=== PATIENT | female | born 1965 | race Two or more races ===

== ENCOUNTER 2020-07-14 20:42 | Emergency (ER) | payer SELFPAY ==
[~2020-07-14] VITALS: Ht 152.4 cm; Wt 122.0 kg
[2020-07-14 21:30] VITALS: BP 180/90
--- NOTE | 2020-07-14 21:47 | NUR ---
ED Nurse Note: Pt walked in from home. Ambulatory , with a katherine step pattern. Vitals are stable on RA with notable Hypertension. Per pt she slipped and fell landing other right leg to right shoulder. She is co of 02/23 pain from right knee to right shoulder. Addendum: 07/14/20 at 2236 by [email or web address] correction 12/24 pain
--- NOTE | 2020-07-14 22:17 | Diagnostic Imaging Report ---
EXAM: XR Right Knee, 3 Views CLINICAL HISTORY: PAIN TECHNIQUE: Three views of the right knee. COMPARISON: No previous study. FINDINGS: Bones/joints: Osteopenia. Moderate to severe osteoarthritic changes, most notably at the patellofemoral joint. No acute fracture or dislocation. Small right knee joint effusion. Soft tissues: Soft tissues are unremarkable. IMPRESSION: 1. Osteopenia. 2. Advanced osteoarthritic changes, most notably at the patellofemoral joint. 3. Joint effusion. 4. Magnetic resonance imaging of the right knee joint should be performed if there is continued concern.
--- NOTE | 2020-07-14 22:29 | Diagnostic Imaging Report ---
EXAM: XR Right Shoulder Complete, 2 or More Views CLINICAL HISTORY: PAIN TECHNIQUE: Two or more views of the right shoulder. COMPARISON: No previous studies. FINDINGS: Bones/joints: Osteopenia. There is fracture of the distal right are clavicle of indeterminate age, possibly chronic. Moderate hypertrophic changes right acromial clavicular joint. Mild osteoarthritic changes about the right shoulder joint. Regional ribs and the scapular unremarkable. No dislocation. Soft tissues: Unremarkable. IMPRESSION: 1. Fracture of the distal right clavicle of indeterminate age, possibly old. Clinical correlation is advised. 2. Osteopenia. 3. If there is concern for rotator cuff tendon abnormalities, magnetic resonance imaging should be performed.
--- NOTE | 2020-07-14 22:30 | Emergency Room Report ---
History of Present Illness General Chief Complaint: Multiple Trauma/Fall Source: Patient Present Illness HPI 54-year-old female, history of hypertension presents with mechanical fall hit her right knee prior to arrival, patient was amatory afterwards, she endorses achy pain aggravated luminally with rest severity is mild, intermittent patient denies hitting her head no LOC patient presents for evaluation Allergies: Coded Allergies: No Known Allergies (Unverified , 07/14/20) COVID-19 Screening Contact w/high risk pt: No Experienced COVID-19 symptoms?: No COVID-19 Testing performed M48 M60 [employer]WMAN: No Patient History Past Medical History: see triage record Last Menstrual Period: n/a Reviewed Nursing Documentation: PMH: Agreed; PSxH: Agreed Nursing Documentation-PMH Past Medical History: No History, Except For Hx Hypertension: Yes Hx Diabetes: Yes Review of Systems All Other Systems: negative except mentioned in HPI Physical Exam Vital Signs Date Time Temp Pulse Resp B/P (MAP) Pulse Ox O2 Delivery O2 Flow Rate FiO2 07/14/20 20:50 98.8 73 18 188/90 (122) 93 Room Air General Appearance: well appearing, no apparent distress Head: normocephalic, atraumatic ENT: hearing grossly normal, normal voice Neck: full range of motion, supple Respiratory: no respiratory distress, speaking full sentences Musculoskeletal: other - Right knee: Anterior posterior drawer negative, valgus varus negative. Right shoulder empty can test positive radial median ulnar nerve intact Neurologic: alert, normal gait Psychiatric: mood/affect normal Skin: no rash Medical Decision Making Diagnostic Impression: Primary Impression: Fall Qualified Codes: W19.XXXA - Unspecified fall, initial encounter Additional Impressions: Contusion of right knee Qualified Codes: S80.01XA - Contusion of right knee, initial encounter Rotator cuff injury Qualified Codes: S46.001A - Unspecified injury of muscle(s) and tendon(s) of the rotator cuff of right shoulder, initial encounter Clavicle fracture Qualified Codes: S42.034A - Nondisplaced fracture of lateral end of right clavicle, initial encounter for closed fracture ER Course 54-year-old female presents with mechanical fall, most likely with a knee contusion x-ray negative, patient provided a cane neurovascular exam is unremarkable patient is ambulatory Pain control with Tylenol Motrin disposition home with return precautions Patient also requested a right shoulder x-ray, incidental old clavicle fx will provide sling Final Report EXAM: XR Right Shoulder Complete, 2 or More Views CLINICAL HISTORY: PAIN TECHNIQUE: Two or more views of the right shoulder. COMPARISON: No previous studies. FINDINGS: Bones/joints:Osteopenia. There is fracture of the distal right are clavicle of indeterminate age, possiblychronic. Moderate hypertrophic changes right acromial clavicular joint. Mild osteoarthritic changes about the right shoulder joint. Regional ribs and the scapular unremarkable. No dislocation. Soft tissues:Unremarkable. IMPRESSION: 1. Fracture of the distal right clavicle of indeterminate age, possiblyold. Clinical correlation is advised. 2. Osteopenia. 3. If there is concern for rotator cuff tendon abnormalities, magnetic resonance imaging should be performed. Radiologist: Reno Trevino MD Electronically Signed: 07/14/20 22:28 Study ready at 22:26 and initial results transmitted at 22:28 Procedure: XRAY Knee 3v R EXAM: XR Right Knee, 3 Views CLINICAL HISTORY: PAIN TECHNIQUE: Three views of the right knee. COMPARISON: No previous study. FINDINGS: Bones/joints: Osteopenia. Moderate to severe osteoarthritic changes, most notably at the patellofemoral joint. No acute fracture or dislocation. Small right knee joint effusion. Soft tissues: Soft tissues are unremarkable. IMPRESSION: 1. Osteopenia. 2. Advanced osteoarthritic changes, most notably at the patellofemoral joint. 3. Joint effusion. 4. Magnetic resonance imaging of the right knee joint should be performed if there is continued concern. Dictated By: Uriel Bojorquez M.D. Electronically Signed By:Uriel Bojorquez M.D. Signed Date/Time07/14/20 6650 CC: Abiel Hooper MD Last Vital Signs Date Time Temp Pulse Resp B/P (MAP) Pulse Ox O2 Delivery O2 Flow Rate FiO2 07/14/20 21:30 98.7 70 17 180/90 95 Room Air Disposition: HOME, SELF-CARE Condition: Stable Scripts Acetaminophen (Tylenol) 325 Mg Tablet 650 MG ORAL Q6H PRN for Prn Pain/Headache/Temp > 101, #30 TAB 0 Refills Prov: Abiel Hooper MD 07/14/20 Referrals: NOT CHOSEN [facility]/,REFERRING (PCP) [facility] Patient Instructions: Clavicle Fracture, [id number], Knee Sprain, [id number] Additional Instructions: The patient was provided with discharge instructions, notified to follow-up with a primary care doctor and or specialist in the next 24-48 hours, and to return to the ED if they have worsening of their symptoms. Please note that this report is being documented using DRAGON technology. This can lead to erroneous entry secondary to incorrect interpretation by the dictating instrument. Abiel Hooper MD Jul 14, 2020 22:30
[2020-07-14] MEDS ORDERED: TYLENOL325 MG ORAL (22:32)
[2020-07-14 22:41] VITALS: BP 180/92
--- NOTE | 2020-07-14 22:42 | NUR ---
ER DISCHARGE NOTE: Patient is cleared to be discharged per ERMD, pt is aox4, on room air, with stable vital signs. pt was given dc and prescription instructions, pt was able to verbalize understanding, pt id band removed. pt is able to ambulate well cane. Educated on use of cane. pt took all belongings.
== END 2020-07-14 22:40 | disposition home or self-care (01) ==
LOC: EMR 21:15
DX: S80.01XA Contusion of right knee, initial encounter (principal); S46.001A Unspecified injury of muscle(s) and tendon(s) of the rotator cuff of right shoulder, initial encounter; I10 Essential (primary) hypertension; E11.9 Type 2 diabetes mellitus without complications; W01.10XA Fall on same level from slipping, tripping and stumbling with subsequent striking against unspecified object, initial encounter; Y93.9 Activity, unspecified; Y92.9 Unspecified place or not applicable; Z87.81 Personal history of (healed) traumatic fracture
CPT/HCPCS: 99284